=== PATIENT | female | born 2000 | race Two or more races ===

== ENCOUNTER 2023-09-26 01:46 | Emergency (ER) | payer OTHER ==
[2023-09-26 01:51] VITALS: BMI 22.8
[2023-09-26] MEDS ORDERED: SODIUM CHLORIDE 1,000 ML IV STA (02:48)
[2023-09-26] MEDS ORDERED: ONDANSETRON 4 MG/2 ML VIAL IVPUSH ONE (02:48)
[2023-09-26] MEDS ORDERED: ACETAMINOPHEN 1000 MG/100 ML BAG IVPB ONE (02:48)
[2023-09-26] MEDS ORDERED: ONDANSETRON 4 MG/2 ML VIAL ONE (02:53)
[2023-09-26] MEDS ORDERED: ACETAMINOPHEN INJECTION 100 ML IVPB ONE (02:57)
[2023-09-26 03:53] LABS: EPI CELLS 4 /uL (0-25.1); HYALINE CASTS 0 /uL (0-3.1); URINE APPEARANCE CLEAR; URINE BACTERIA 57 /uL (0-1359); URINE BILIRUBIN NEGATIVE (NEGATIVE); URINE COLOR YELLOW; URINE GLUCOSE (UA) NEGATIVE (NEGATIVE); URINE KETONE TRACE (NEGATIVE); URINE LEUK ESTERASE NEGATIVE (NEGATIVE); URINE NITRITE NEGATIVE (NEGATIVE); URINE PROTEIN 1+ (NEGATIVE); URINE RBC 19 /uL (0-23.9); URINE UROBILINOGEN 0.2 mg/dL (0.2-1.0); URINE WBC 8 /uL (0-25.8)
[2023-09-26 04:02] LABS: BASO % 0.1 % (0-2.0); LYMPH % 8.3 % (8-40); MCHC 31.3 g/dl (32.0-36.0); MEAN CELL VOLUME 59.9 fl (80-96); MEAN PLT VOLUME 9.2 fl (7.5-11.1); MONO % 4.4 % (3.8-10.2); NEUT % 87.2 % (42.8-82.8); PLATELET COUNT 237 10^3/uL (134-434); RBC 5.85 M/mm3 (3.60-5.2); RDW 14.7 % (11.6-15.6); WHITE BLOOD COUNT 13.8 K/mm3 (4.0-10.0)
[2023-09-26 04:25] LABS: POTASSIUM 3.9 mmol/L (3.5-5.1)
[2023-09-26 04:28] LABS: ALBUMIN 4.2 g/dl (3.4-5.0); BLOOD UREA NITROGEN 11.8 mg/dL (7-18)
[2023-09-26 04:32] LABS: BILIRUBIN,TOTAL 0.8 mg/dL (0.2-1); TOT PROT 7.7 g/dl (6.4-8.2)
[2023-09-26 04:34] LABS: MCH 18.8 pg (25.7-33.7)
[2023-09-26 05:53] VITALS: BP 105/65; PULSE 83; RESP 16; TEMP 98.3
== END 2023-09-26 05:57 | disposition home or self-care (01) ==
LOC: JER 01:46
PROC: 3E033NZ Introduction of Analgesics, Hypnotics, Sedatives into Peripheral Vein, Percutaneous Approach (ICD-10-PCS; principal; 2023-09-26)
PROC: 3E033GC Introduction of Other Therapeutic Substance into Peripheral Vein, Percutaneous Approach (ICD-10-PCS; 2023-09-26)
PROC: 3E0337Z Introduction of Electrolytic and Water Balance Substance into Peripheral Vein, Percutaneous Approach (ICD-10-PCS; 2023-09-26)
DX: R50.9 Fever, unspecified (principal); R07.0 Pain in throat; M79.10 Myalgia, unspecified site; R11.0 Nausea; R53.83 Other fatigue; R05.9 Cough, unspecified; J06.9 Acute upper respiratory infection, unspecified; Z20.822 Contact with and (suspected) exposure to COVID-19
CPT/HCPCS: 0241U-QW; 36415; 80053; 81003; 84703; 85025; 87086; 87651; 96374; 96375; 99284-25

== ENCOUNTER 2023-10-03 04:24 | Day surgery (SDC) | payer OTHER ==
[2023-09-26 15:59] VITALS: BMI 22.9
[2023-10-03] MEDS ORDERED: ACETAMINOPHEN 325 MG TABLET (FP) PO PRN (07:38)
[2023-10-03] MEDS ORDERED: ONDANSETRON 4 MG/2 ML VIAL IVPUSH PRN ×2 (07:38→14:03)
[2023-10-03] MEDS ORDERED: IBUPROFEN 400 MG TABLET (FP) PO PRN (07:38)
[2023-10-03] MEDS ORDERED: FENTANYL CITRATE/PF 50 MCG/ML VIAL ONE ×2 (12:57→13:36)
[2023-10-03] MEDS ORDERED: PROPOFOL 40 ML ONE (12:57)
[2023-10-03] MEDS ORDERED: KETOROLAC TROMETHAMINE 30 MG/1 ML VIAL ONE (13:36)
[2023-10-03] MEDS ORDERED: ONDANSETRON 4 MG/2 ML VIAL ONE (13:36)
[2023-10-03] MEDS ORDERED: DEXAMETHASONE SOD PHOSPHATE 4 MG/1 ML VIAL ONE (13:36)
[2023-10-03] MEDS ORDERED: oxyCODONE HCL 5 MG TABLET PO PRN (14:03)
[2023-10-03 15:20] VITALS: PULSE 57
[2023-10-03 15:38] VITALS: BP 110/69; RESP 19; TEMP 98
== END 2023-10-03 16:00 | disposition home or self-care (01) ==
LOC: JASU-SURG 04:24
PROVIDERS: ATTEND Obstetrics & Gynecology
PROC: 0UB98ZZ Excision of Uterus, Via Natural or Artificial Opening Endoscopic (ICD-10-PCS; principal; 2023-10-03 13:00)
DX: N84.0 Polyp of corpus uteri (principal); D25.0 Submucous leiomyoma of uterus
CPT/HCPCS: 81025; 86900; 88305-TC; 94760

== ENCOUNTER 2023-12-04 13:23 | Emergency (ER) | payer OTHER ==
[2023-12-04 13:26] VITALS: BP 119/59; PULSE 73; RESP 18; TEMP 98.1; BMI 22.8
[2023-12-04 14:16] LABS: BASO % 0.5 % (0-2.0); EOS % 0.4 % (0-4.5); HEMATOCRIT 34.2 % (32.4-45.2); HEMOGLOBIN 10.8 GM/dL (10.7-15.3); LYMPH % 24.5 % (8-40); MCHC 31.5 g/dl (32.0-36.0); MEAN CELL VOLUME 60.4 fl (80-96); MEAN PLT VOLUME 8.8 fl (7.5-11.1); MONO % 6.5 % (3.8-10.2); NEUT % 68.1 % (42.8-82.8); PLATELET COUNT 214 10^3/uL (134-434); RBC 5.66 M/mm3 (3.60-5.2); RDW 14.7 % (11.6-15.6)
[2023-12-04 14:29] LABS: POTASSIUM 3.9 mmol/L (3.5-5.1)
[2023-12-04 14:32] LABS: ALBUMIN 4.2 g/dl (3.4-5.0); BLOOD UREA NITROGEN 8.4 mg/dL (7-18); CALCIUM 9.6 mg/dL (8.5-10.1)
[2023-12-04 14:35] LABS: URINE APPEARANCE CLEAR; URINE BILIRUBIN NEGATIVE (NEGATIVE); URINE COLOR YELLOW; URINE GLUCOSE (UA) NEGATIVE (NEGATIVE); URINE KETONE NEGATIVE (NEGATIVE); URINE LEUK ESTERASE NEGATIVE (NEGATIVE); URINE NITRITE NEGATIVE (NEGATIVE); URINE PROTEIN NEGATIVE (NEGATIVE); URINE UROBILINOGEN 0.2 mg/dL (0.2-1.0)
[2023-12-04 14:35] LABS: CREATININE 0.7 mg/dL (0.55-1.3)
[2023-12-04 14:36] LABS: HCG,QUALITATIVE URINE Positive
[2023-12-04 14:37] LABS: BILIRUBIN,TOTAL 0.6 mg/dL (0.2-1); TOT PROT 7.9 g/dl (6.4-8.2)
[2023-12-04 15:01] LABS: ANISOCYTOSIS 1+; MACROCYTOSIS 0
== END 2023-12-04 17:15 | disposition home or self-care (01) ==
LOC: JER 13:23
DX: O20.9 Hemorrhage in early pregnancy, unspecified (principal); Z3A.01 Less than 8 weeks gestation of pregnancy
CPT/HCPCS: 36415; 76817-TC; 80053; 81003; 84702; 84703; 85025; 87086; 99284-25

== ENCOUNTER 2024-07-27 14:30 | Inpatient (IN) | payer OTHER ==
[2024-07-27] MEDS: ELECTROLYTE-148 SOLN 1,000 ML IV SCH (15:00)
[2024-07-27 16:30] VITALS: BMI 31.1
[2024-07-27 16:54] LABS: BASO % 0.6 % (0-2.0); EOS % 0.2 % (0-4.5); HEMATOCRIT 31.9 % (32.4-45.2); HEMOGLOBIN 10.1 GM/dL (10.7-15.3); LYMPH % 15.9 % (8-40); MCH 20.5 pg (25.7-33.7); MCHC 31.6 g/dl (32.0-36.0); MEAN CELL VOLUME 64.8 fl (80-96); MEAN PLT VOLUME 9.6 fl (7.5-11.1); MONO % 5.9 % (3.8-10.2); NEUT % 77.4 % (42.8-82.8); PLATELET COUNT 191 10^3/uL (134-434); RBC 4.92 M/mm3 (3.60-5.2); RDW 16.2 % (11.6-15.6); WHITE BLOOD COUNT 10.9 K/mm3 (4.0-10.0)
[2024-07-27 16:58] LABS: INR 0.95 (0.83-1.09); PROTHROMBIN TIME (PATIENT) 10.9 SEC (9.7-13.0)
[2024-07-27 17:00] LABS: ACTIVATED PTT 26.8 SECONDS (25.2-36.5)
[2024-07-27 17:12] LABS: CALCIUM 8.6 mg/dL (8.5-10.1)
[2024-07-27 17:13] LABS: BLOOD UREA NITROGEN 9.3 mg/dL (7-18)
[2024-07-27 17:16] LABS: CREATININE 0.6 mg/dL (0.55-1.3)
[2024-07-27 18:06] LABS: HIV INTERPRETATION NEGATIVE (NEGATIVE)
[2024-07-27] MEDS ORDERED: FENTANYL/BUPIVACAINE/NS/PF - PCEA - 50 ML DISP.SYRIN EP ONE ×2 (18:38→22:39)
[2024-07-27] MEDS: FENTANYL/BUPIVACAINE/NS/PF - PCEA - 50 ML DISP.SYRIN EP SCH (19:00)
[2024-07-27] MEDS ORDERED: NALOXONE HCL 0.4 MG/ML VIAL IVPUSH PRN (19:06)
[2024-07-27] MEDS ORDERED: LACTATED RINGERS SOLUTION 1,000 ML/1,000 ML INFUS.BAG IV SCH (20:15)
[2024-07-27] MEDS ORDERED: OXYTOCIN 20 UNITS in 0.9% NS 20 UNIT/1,000 ML INFUS.BAG IV ONE (23:01)
[2024-07-28] MEDS: OXYTOCIN 20 UNITS in 0.9% NS 20 UNIT/1,000 ML INFUS.BAG IV SCH (00:51)
[2024-07-28] MEDS: METHYLERGONOVINE MALEATE 0.2 MG/1 ML AMP IM PRN (00:55)
[2024-07-28] MEDS ORDERED: ACETAMINOPHEN 325 MG TABLET (FP) PO PRN (02:23)
[2024-07-28] MEDS ORDERED: WITCH HAZEL 50% (TUCKS) 40 PAD/JAR PAD TP PRN (02:23)
[2024-07-28] MEDS ORDERED: BISACODYL 10 MG SUPP.RECT RC PRN (02:23)
[2024-07-28] MEDS ORDERED: oxyCODONE HCL 5 MG TABLET PO PRN (02:23)
[2024-07-28 02:41] LABS: CORD BASE EXCESS -4.6 mmol/L (0-2); CORD PCO2 28.7 mmHg (30-78); CORD pH 7.415 (7.14-7.44)
[2024-07-28] MEDS: BENZOCAINE 20% 57 GM BOTTLE TP PRN (08:14)
[2024-07-28] MEDS: BENZOCAINE 28 GM HEMORRHOIDAL OINTMENT TP PRN (08:14)
[2024-07-28] MEDS: PRENATAL VITAMINS W/ FOLIC ACID TABLET (FP) PO SCH (09:23)
[2024-07-28] MEDS: IBUPROFEN 600 MG TABLET (FP) PO PRN (09:26)
[2024-07-28] MEDS: ACETAMINOPHEN 500 MG TABLET (FP) PO ONE (18:40)
[2024-07-29 07:22] LABS: EPI CELLS 4 /uL (0-25.1); HYALINE CASTS 0 /uL (0-3.1); URINE APPEARANCE CLOUDY; URINE BACTERIA 6183 /uL (0-1359); URINE BILIRUBIN NEGATIVE (NEGATIVE); URINE COLOR YELLOW; URINE GLUCOSE (UA) NEGATIVE (NEGATIVE); URINE KETONE NEGATIVE (NEGATIVE); URINE LEUK ESTERASE TRACE (NEGATIVE); URINE NITRITE POSITIVE (NEGATIVE); URINE PROTEIN TRACE (NEGATIVE); URINE RBC 1917 /uL (0-23.9); URINE UROBILINOGEN 0.2 mg/dL (0.2-1.0); URINE WBC 429 /uL (0-25.8)
[2024-07-29 08:25] LABS: BASO % 0.1 % (0-2.0); EOS % 0.2 % (0-4.5); HEMATOCRIT 26.4 % (32.4-45.2); HEMOGLOBIN 8.2 GM/dL (10.7-15.3); LYMPH % 11.4 % (8-40); MCH 20.2 pg (25.7-33.7); MCHC 31.2 g/dl (32.0-36.0); MEAN CELL VOLUME 64.7 fl (80-96); MEAN PLT VOLUME 9.8 fl (7.5-11.1); MONO % 5.7 % (3.8-10.2); NEUT % 82.6 % (42.8-82.8); PLATELET COUNT 154 10^3/uL (134-434); RBC 4.07 M/mm3 (3.60-5.2); RDW 15.8 % (11.6-15.6)
[2024-07-29] MEDS: CEPHALEXIN MONOHYDRATE 500 MG CAPSULE (UD) PO SCH (15:10)
[2024-07-29] MEDS: SENNOSIDES/DOCUSATE COMBO (SENNA PLUS) TABLET (UD) PO PRN (22:11)
[2024-07-30 11:39] VITALS: BP 132/81; PULSE 93; RESP 17; TEMP 98.9
== END 2024-07-30 13:45 | disposition home or self-care (01) | DRG 560 ==
LOC: JDEL 14:30 → JLDR 15:00 → J3W 07-28 03:22
PROVIDERS: ADMIT Obstetrics & Gynecology; ATTEND Obstetrics & Gynecology
PROC: 10E0XZZ Delivery of Products of Conception, External Approach (ICD-10-PCS; principal; 2024-07-28)
PROC: 0KQM0ZZ Repair Perineum Muscle, Open Approach (ICD-10-PCS; 2024-07-28)
PROC: 0W8NXZZ Division of Female Perineum, External Approach (ICD-10-PCS; 2024-07-28)
DX: O70.1 Second degree perineal laceration during delivery (principal); Z3A.39 39 weeks gestation of pregnancy; Z37.0 Single live birth
CPT/HCPCS: 36415; 36600; 59409; 80048; 81003; 82803; 85025; 85610; 85730; 86780; 86803; 86850; 86900; 86901; 87086; 87186; 87389